=== PATIENT | male | born 1955 | race Asian ===

== ENCOUNTER 2019-02-15 18:51 | Emergency (ER) | payer MEDICAID ==
[~2019-02-15] VITALS: Ht 167.6 cm; Wt 86.2 kg
--- NOTE | 2019-02-15 19:11 | NUR ---
ED Nurse Note: pt reports to ED for suture removal. He was bitten by a dog 10 days ago and had 3 sutures placed in his R lower leg. He was told to return in 10 days to have them removed. pt denies any pain, swelling or discomfort to the area. Addendum: 02/15/19 at 1924 by GABBI pt does report that there were originally 4 stitches but he is unsure where the 4th one is or what happened to it. the area appears red upon inspection
[2019-02-15 19:12] VITALS: BP 129/84
[2019-02-15] MEDS ORDERED: AMLODIPINE BESYL5 MG ORAL (19:12)
[2019-02-15] MEDS ORDERED: METOPROLOL SUCC25 MG ORAL (19:12)
[2019-02-15] MEDS ORDERED: ASPIR-LOW81 MG ORAL (19:12)
[2019-02-15] MEDS ORDERED: FOLIC ACID1 MG ORAL (19:12)
[2019-02-15] MEDS ORDERED: Tetanus/Diptheria/Pertussis IM ONE (19:30)
--- NOTE | 2019-02-15 19:54 | Emergency Room Report ---
History of Present Illness General Chief Complaint: Wound Recheck/Suture Removal Source: Patient Present Illness HPI 63-year-old male with no significant past medical history here requesting suture removal from his right knee. Patient was bit by a dog 10 days ago which reports that the dog was up-to-date with immunization. Please report has already been made. Patient went to an urgent care and had 4 stitches placed in right knee, was put on Bactrim DS, one stitch popped and one is loose. Signs of obvious infection noted. Mild tenderness around the affected area. Patient has full range of motion, no motor or sensory deficits. Denies fever and chills , chest pain, shortness of breath, palpitation, or other associated symptoms. Reports that no x-ray was done, and no tetanus shot was given. Patient is not up-to-date with tetanus shot. Is sitting comfortably with stable vital signs. Allergies: Coded Allergies: No Known Allergies (Unverified , 02/15/19) Patient History Past Medical History: see triage record Past Surgical History: unable to obtain Pertinent Family History: none Immunizations: other - Tdap today Reviewed Nursing Documentation: PMH: Agreed; PSxH: Agreed Nursing Documentation-PMH Hx Hypertension: Yes Review of Systems All Other Systems: negative except mentioned in HPI Physical Exam Vital Signs Date Time Temp Pulse Resp B/P (MAP) Pulse Ox O2 Delivery O2 Flow Rate FiO2 02/15/19 19:02 98.4 68 16 129/84 (99) 98 Room Air Sp02 EP Interpretation: reviewed, normal General Appearance: no apparent distress, alert, GCS 15, non-toxic Head: normocephalic, atraumatic Eyes: bilateral eye normal inspection, bilateral eye PERRL ENT: hearing grossly normal, normal pharynx, no angioedema, normal voice Neck: full range of motion, supple, supple/symm/no masses Respiratory: chest non-tender, lungs clear, normal breath sounds, no rhonchi, no wheezing, speaking full sentences Cardiovascular #1: regular rate, rhythm, no edema, no murmur, normal capillary refill Gastrointestinal: normal inspection, non tender, soft Genitourinary: normal inspection, no CVA tenderness Musculoskeletal: back normal, gait/station normal, normal range of motion, non- tender, no calf tenderness Neurologic: alert, oriented x3, responsive, motor strength/tone normal, sensory intact, speech normal Psychiatric: judgement/insight normal, memory normal, mood/affect normal, no suicidal/homicidal ideation Skin: other - Infected closed laceration right knee Lymphatic: no adenopathy Procedures Laceration/Wound Repair Laceration/Wound Repair : Consent: Verbal Wound Location: lower extremity - Right knee Wound's Depth, Shape: superficial Wound Length (cm): 2 Wound Explored: no foreign body removed Wound Repaired With: Steri-strips Sterile Dressing Applied?: Yes Splint Applied?: No Sling Applied?: Yes Patient Tolerated: Well Complications: None Medical Decision Making PA Attestation All my diagnosis and treatment plans were reviewed ad discussed with my supervising physician Dr. June Diagnostic Impression: Primary Impression: Dog bite of right lower leg with infection Additional Impression: Encounter for removal of sutures ER Course 63-year-old male with no significant past medical history here requesting suture removal from his right knee. Patient was bit by a dog 10 days ago which reports that the dog was up-to-date with immunization. Please report has already been made. Patient went to an urgent care and had 4 stitches placed in right knee, was put on Bactrim DS, one stitch popped and one is loose. Signs of obvious infection noted. Mild tenderness around the affected area. Patient has full range of motion, no motor or sensory deficits. Denies fever and chills , chest pain, shortness of breath, palpitation, or other associated symptoms. Reports that no x-ray was done, and no tetanus shot was given. Patient is not up-to-date with tetanus shot. Is sitting comfortably with stable vital signs. Ddx considered but are not limited to : Superficial laceration, deep laceration , tendon involvement with laceration, laceration with foreign body Vital signs: are WNL, pt. is afebrile H&PE are most consistent with: Infected repair laceration, encounter for removal of sutures, dog bite of right lower leg with infection ORDERS: X-ray right knee, Keflex ED INTERVENTIONS: Tdap, wound repair DISCHARGE: At this time pt. is stable for d/c to home. Will provide printed patient care instructions, and any necessary prescriptions. Care plan and follow up instructions have been discussed with the patient prior to discharge. Patient to follow-up ER in 24 to 48 hours for wound check. If worsening symptoms return to the emergency room. Other X-Ray Diagnostic Results Other X-Ray Diagnostic Results : X-Ray ordered: Right knee # of Views/Limited Vs Complete: 3 View Indication: Pain EP Interpretation: Yes RIK Xray: Interpretation reviewed, and agrees with findings. Interpretation: no dislocation, no soft tissue swelling, no fractures, other - No foreign body noted, no osteomyelitis Impression: No acute disease Electronically Signed by: Sabrina Weiss PA-C Last Vital Signs Date Time Temp Pulse Resp B/P (MAP) Pulse Ox O2 Delivery O2 Flow Rate FiO2 02/15/19 19:12 98.4 16 129/84 98 Room Air 02/15/19 19:02 68 Disposition: HOME, SELF-CARE Condition: Stable Scripts Cephalexin* (KEFLEX*) 500 Mg Capsule 500 MG ORAL EVERY 6 HOURS for 7 Days, #28 CAP Prov: Sabrina Lamb 02/15/19 Patient Instructions: Animal Bite, [id number], Suture Removal, Care After Additional Instructions: Take medication as directed, follow-up with your primary care provider, wound care as needed in 24 to 48 hours. If worsening symptoms return to the emergency room. Sabrina Lamb Feb 15, 2019 19:54
[2019-02-15] MEDS ORDERED: CEPHALEXIN500 MG ORAL (19:55)
--- NOTE | 2019-02-15 20:05 | Diagnostic Imaging Report ---
FILM RIGHT KNEE: No fracture or malalignment. No joint effusion. No radiopaque foreign body.
[2019-02-15 20:13] VITALS: BP 116/79
--- NOTE | 2019-02-15 20:19 | NUR ---
ED Nurse Note: Pt cleared by health care Provider for discharge. DC instructions/prescription were given to pt and his daughter, they verbalized understanding of teachings and will return in 2 days for reevaluation. All medical devices such as ID band removed. Pt is AAO x4, ambulatory and left with all personal belongings.
== END 2019-02-15 20:18 | disposition home or self-care (01) ==
LOC: EMR 20:18
DX: S81.051D Open bite, right knee, subsequent encounter (principal); L08.9 Local infection of the skin and subcutaneous tissue, unspecified; I10 Essential (primary) hypertension; Z23 Encounter for immunization; Z48.02 Encounter for removal of sutures; W54.0XXD Bitten by dog, subsequent encounter
CPT/HCPCS: 73562; 90471; 90715; Z7502; 99283

== ENCOUNTER 2019-02-17 19:08 | Emergency (ER) | payer MEDICAID ==
[~2019-02-17] VITALS: Ht 167.6 cm; Wt 86.2 kg
[~2019-02-17 19:08] MED LIST: AMLODIPINE BESYL5 MG ORAL; ASPIR-LOW81 MG ORAL; CEPHALEXIN500 MG ORAL; FOLIC ACID1 MG ORAL; METOPROLOL SUCC25 MG ORAL
[2019-02-17] MEDS ORDERED: LISINOPRIL2.5 MG ORAL (19:16)
[2019-02-17 19:24] VITALS: BP 120/79
--- NOTE | 2019-02-17 19:24 | NUR ---
ED Nurse Note: Pt ambulated to ED from home for a wound recheck on R knee from dog bite
--- NOTE | 2019-02-17 19:39 | Emergency Room Report ---
History of Present Illness General Chief Complaint: Wound Recheck/Suture Removal Source: Patient Present Illness HPI 63-year-old male presents to the emergency department for wound recheck of the right knee. Patient was seen here 48 hours ago due to infected previously sutured dog bite involving the right knee. Patient states that his symptoms have improved greatly he states that the erythema and warmth has resolved. Patient denies pain at this time he denies purulent discharge he states he is up -to-date with his tetanus vaccinations. Patient denies any other symptoms at this time. He denies fevers or chills. Allergies: Coded Allergies: No Known Allergies (Unverified , 02/15/19) Patient History Past Medical History: see triage record, HTN Past Surgical History: none Pertinent Family History: none Reviewed Nursing Documentation: PMH: Agreed; PSxH: Agreed Nursing Documentation-PMH Past Medical History: No History, Except For Hx Hypertension: Yes Review of Systems All Other Systems: negative except mentioned in HPI Physical Exam Vital Signs Date Time Temp Pulse Resp B/P (MAP) Pulse Ox O2 Delivery O2 Flow Rate FiO2 02/17/19 19:13 98.4 72 14 120/79 (93) 99 Room Air Sp02 EP Interpretation: reviewed, normal General Appearance: no apparent distress, alert, GCS 15, non-toxic Head: normocephalic, atraumatic Eyes: bilateral eye normal inspection, bilateral eye PERRL ENT: hearing grossly normal, normal voice Neck: full range of motion Respiratory: lungs clear, normal breath sounds, speaking full sentences Cardiovascular #1: regular rate, rhythm Musculoskeletal: back normal, gait/station normal, normal range of motion, non- tender Neurologic: alert, oriented x3, responsive, motor strength/tone normal, sensory intact, normal gait, speech normal, grossly normal Psychiatric: judgement/insight normal Skin: wd healing/no infection noted - Healing 4.5cm right anterior knee laceration with visible steri-strips Medical Decision Making PA Attestation Dr. Arango is my supervising Physician whom patient management has been discussed with. Diagnostic Impression: Primary Impression: Encounter for wound re-check ER Course 63-year-old male presents to the emergency department for wound recheck of the right knee. Patient was seen here 48 hours ago due to infected previously sutured dog bite involving the right knee. Patient states that his symptoms have improved greatly he states that the erythema and warmth has resolved. Patient denies pain at this time he denies purulent discharge he states he is up -to-date with his tetanus vaccinations. Patient denies any other symptoms at this time. He denies fevers or chills. Ddx considered but are not limited to cellulitis, abscess,sepsis, septic joint, normal healing wound just to name a few. Vital signs: are WNL, pt. is afebrile H&PE are most consistent with Healing 4.5cm right anterior knee laceration with visible steri-strips. ORDERS: none required at this time, the diagnosis is clinical ED INTERVENTIONS: -wound examined -Sterile dressing applied. d/w pt. to continue taking po abx and to look for signs of infection . DISCHARGE: At this time pt. is stable for d/c to home. Will provide printed patient care instructions, and any necessary prescriptions. Care plan and follow up instructions have been discussed with the patient prior to discharge. Last Vital Signs Date Time Temp Pulse Resp B/P (MAP) Pulse Ox O2 Delivery O2 Flow Rate FiO2 02/17/19 19:24 98.4 80 14 120/79 99 Room Air Disposition: HOME, SELF-CARE Condition: Stable Patient Instructions: Wound Check Additional Instructions: Take previously prescribed medications as directed. Follow up with a Primary Care Provider in 3-5 days, even if your symptoms have resolved. Return sooner to ED if new symptoms occur, or current symptoms become worse. - Please note that this Emergency Department Report was dictated using [employer] technology software, occasionally this can lead to erroneous entry secondary to interpretation by the dictation equipment. Linn Rosa Feb 17, 2019 19:39
[2019-02-17 19:44] VITALS: BP 120/79
--- NOTE | 2019-02-17 19:44 | NUR ---
ER DISCHARGE NOTE: Patient is cleared to be discharged per ERMD, pt is aox4, on room air, with stable vital signs. pt was given dc and prescription instructions, pt was able to verbalize understanding, pt id band removed. pt is able to ambulate with steady gait. pt took all belongings.
== END 2019-02-17 19:44 | disposition home or self-care (01) ==
LOC: EMR 19:44
DX: S81.011D Laceration without foreign body, right knee, subsequent encounter (principal); I10 Essential (primary) hypertension; W54.0XXD Bitten by dog, subsequent encounter
CPT/HCPCS: 99282